=== PATIENT | male | born 1995 | race Caucasian/White ===

== ENCOUNTER 2017-10-29 14:42 | Emergency (ER) | payer OTHER ==
[2017-10-29] MEDS: 0.9 % SODIUM CHLORIDE 1,000 ML IV SCH ×2 (15:44→16:46)
--- NOTE | 2017-10-29 15:46 | ED Physician Documentation ---
Abdominal Pain - HISTORIAN Historian: patient - HPI Stated Complaint: Right abdominal pain Chief Complaint: Abdominal Pain Additonal Information: Yesterday patient developed some ill feeling and he became lightheaded, started to have some nausea/vomiting. Patient was having some orthostatic symptoms at that time. Later that day started to have some vomiting again with some dry heaves. Was able to keep some fluids and food down for a short period of time today. Developed some stabbing sensation to the right lower abd area this afternoon. Still has pain in the right lower abd area. Has some some diarrhea yesterday, none today. No blood in stool or emeisis. Did have a low grade fever and chills yesterday, none today. Onset: days ago (yesterday) Duration: waxing, waning Timing: better Context: denies: out of country travel, bad food Severity: moderate Quality: cramping Associated Symptoms: fever, chills, nausea, vomiting. denies: bloody stools, grossly bloody stools Exacerbated by: nothing Relieved by: nothing - ROS CONST: no problems GI/: none - SOCIAL HX Smoking History: non-smoker Alcohol Use: none - FAMILY HX Family History: none - PAST HX Past History: none Other History: none Surgeries/Procedures: none Immunizations: referred to PCP Home Medications: Ambulatory Orders Medication Instructions Recorded Ondansetron HCl Rapdis [Zofran Odt] 4 mg PO Q8 #5 tab 10/29/17 Allergies/Adverse Reactions: Allergies Allergy/AdvReac Type Severity Reaction Status Date / Time No Known Allergies Allergy Verified 10/29/17 15:02 - VITAL SIGNS Vital Signs: Vital Signs Temp Pulse Resp BP Pulse Ox 98.0 F 67 18 126/74 98 10/29/17 17:25 10/29/17 17:25 10/29/17 17:25 10/29/17 17:25 10/29/17 17:25 - REVIEWED ASSESSMENTS Nursing Assessment Reviewed: Yes Vitals Reviewed: Yes ED Results Lab/Radiology - Lab Results Lab Results: Lab Results 10/29/17 10/29/17 15:35 15:35 WBC 9.30 K/ul K/ul (4.00-12.00) RBC 5.43 M/ul H M/ul (3.90-5.20) Hgb 15.5 g/dL g/dL (12.0-18.0) Hct 45.2 % % (37.0-53.0) MCV 83.2 fl fl (80.0-100.0) MCH 28.5 pg pg (28.0-34.0) MCHC 34.3 g/dL g/dL (30.0-36.0) RDW 12.2 % % (11.3-14.3) Plt Count 315 K/mm3 K/mm3 (130-400) Neut % (Auto) 78.2 % % (39.0-79.0) Lymph % (Auto) 12.0 % L % (16.0-50.0) Scurry % (Auto) 7.8 % % (0.0-11.0) Eos % (Auto) 0.3 % % (0.0-6.8) Baso % (Auto) 0.3 (0.0-1.5) Neut # (Auto) 7.3 # k/uL # k/uL (1.4-7.7) Lymph # (Auto) 1.1 # k/uL # k/uL (0.6-4.0) Scurry # (Auto) 0.7 # k/uL # k/uL (0.0-0.9) Eos # (Auto) 0.0 # k/uL # k/uL (0.0-0.6) Baso # (Auto) 0.0 # k/uL # k/uL (0.0-0.5) Reactive Lymphs % 1.3 % % (0.0-5.0) Reactive Lymphs # 0.1 # k/uL # k/uL (0.0-0.8) Sodium 139 mmol/L mmol/L (136-145) Potassium 3.5 mmol/L mmol/L (3.5-5.1) Chloride 97 mmol/L L mmol/L (98-107) Total Carbon Dioxide 23 mmol/L mmol/L (22-29) BUN 15 mg/dL mg/dL (6-20) Creatinine 1.04 mg/dL mg/dL (0.40-1.50) Estimated GFR mL/min 127 Glucose 108 mg/dL H mg/dL (70-99 Fasting) Calcium 9.8 mg/dL mg/dL (8.6-10.2) Total Bilirubin 0.3 mg/dL mg/dL (<1.2) AST 17 U/L U/L (<40) ALT 10 U/L U/L (<42) Alkaline Phosphatase 84 U/L U/L (40-129) Total Protein 7.5 g/dL g/dL (6.0-8.5) Albumin 4.5 g/dL g/dL (3.5-5.2) Lipase 25 U/L U/L (13-60) - Radiology Radiology Impressions: CT abdomen and pelvis with contrast Date of study: October 29, 2017 CLINICAL HISTORY: RLQ PAIN; APPY PROTOCOL (Hx) / ITS.REASON RLQ ABD PAIN Note time : 10/29/2017 5:38:34 PM User : aMriela Alvarado RLQ PAIN; APPY PROTOCOL (DICOM Hx) TECHNIQUE: 3 mm contiguous axial images of the abdomen and pelvis with IV contrast. With ; 92 CC OMNIPAQUE FINDINGS: Lung ames are hyperinflated The liver spleen adrenal glands pancreas and gallbladder are unremarkable. Kidneys enhance normally. Aorta is unremarkable. Air fluid levels are present in mildly dilated large and small bowel. Appendix is not identified but no inflammatory changes are seen in the right lower quadrant. There is no retroperitoneal or pelvic mass. Small amount of free pelvic fluid is present. The bladder is unremarkable. Act. IMPRESSION: Probable ileus or gastroenteritis. Appendix is not identified. Free pelvic fluid . Hyperinflated lung bases - Orders Orders: ED Orders Category Date Time Status Orthostatics 1T Care 10/29/17 16:[address] IV Lock 1T Care 10/29/17 15:[address] ABD & PELVIS W/ CON Stat Exams 10/29/17 Taken CBC/PLATELET/DIFF Routine Lab 10/29/17 15:35 Completed URINALYSIS Routine Lab 10/29/17 Ordered 0.9 % Sodium Chloride [Normal Saline] 1,000 ml Med 10/29/17 17:00 Discontinued IV .Q1H 0.9 % Sodium Chloride [Normal Saline] 1,000 ml Med 10/29/17 15:39 Discontinued IV .STK-MED 0.9 % Sodium Chloride [Normal Saline] 1,000 ml Med 10/29/17 16:35 Discontinued IV .STK-MED 0.9 % Sodium Chloride [Normal Saline] 1,000 ml Med 10/29/17 15:30 Discontinued IV Q10H Abdominal Pain Physical Exam - Physical Exam General Appearance: alert, mild distress NECK: normal inspection RESPIRATORY: no resp distress, chest non-tender, breath sounds normal. No: wheezes, rales, rhonchi CVS: reg rate & rhythm, heart sounds normal, equal pulses, no murmur, no gallop ABDOMEN: soft, no organomegaly, increased BS (mild), guarding (mild in RLQ) BACK: normal inspection, no CVA tenderness SKIN: warm/dry, normal color EXTREMITIES: non-tender, normal range of motion, no evidence of injury, no edema NEURO: oriented X3, CN's nml as tested, motor nml, cognition normal Vital Signs: Vital Signs Temp Pulse Resp BP Pulse Ox 98.0 F 67 18 126/74 98 10/29/17 17:25 10/29/17 17:25 10/29/17 17:25 10/29/17 17:25 10/29/17 17:25 Discharge Clincal Impression: Viral gastroenteritis Prescriptions: Ondansetron HCl Rapdis [Zofran Odt] 4 mg PO Q8 #5 tab Referrals: Primary Doctor,No [Primary Care Provider] - 2 Days Comments: Clear liquids for then next 12-24 hours, take zofran as needed for nausea. Symptoms should improve within the nex 24 hours. If not getting better to see your primary care provider or return to the ED. Condition: Stable Disposition: 01 HOME, SELF-CARE Decision to Admit: NO Date of Decison to Admit: 10/29/17 Decision Time: 16:55
[2017-10-29 16:07] LABS: BASOPHILS % 0.3 (0.0-1.5); EOSINOPHILS % 0.3 % (0.0-6.8); MEAN CORPUSCULAR HEMOGLOBIN 28.5 pg (28.0-34.0); MEAN CORPUSCULAR VOLUME 83.2 fl (80.0-100.0); MONOCYTES % 7.8 % (0.0-11.0); NEUTROPHILS # 7.3 # k/uL (1.4-7.7)
[2017-10-29 17:28] VITALS: BP 126/74
[2017-10-29] MEDS: 0.9 % SODIUM CHLORIDE 1,000 ML IV ONE ×2 (17:28)
[2017-10-29 18:20] LABS: LIPASE 25 U/L (13-60); TOTAL PROTEIN 7.5 g/dL (6.0-8.5)
--- NOTE | 2017-10-29 20:06 | Diagnostic Imaging Report ---
FANNY HAETH [facility] [id number] [facility] [address] [address] Report Submission Date: October 29, 2017 4:48:58 PM CDT Patient Study Name: RAMEZ PARDO Date: October 29, 2017 4:28:03 PM CDT Modality Type: CT\SR Gender: M Description: CT ABD PELVIS W/ CON : 94 Institution: [facility] Physician: FANNY HEATH CT abdomen and pelvis with contrast Date of study: October 29, 2017 CLINICAL HISTORY: RLQ PAIN; APPY PROTOCOL (Hx) / ITS.REASON RLQ ABD PAIN Note time : 10/29/2017 5:38:34 PM User : Mariela Alvarado RLQ PAIN; APPY PROTOCOL (DICOM Hx) TECHNIQUE: 3 mm contiguous axial images of the abdomen and pelvis with IV contrast. With ; 92 CC OMNIPAQUE FINDINGS: Lung ames are hyperinflated The liver spleen adrenal glands pancreas and gallbladder are unremarkable. Kidneys enhance normally. Aorta is unremarkable. Air fluid levels are present in mildly dilated large and small bowel. Appendix is not identified but no inflammatory changes are seen in the right lower quadrant. There is no retroperitoneal or pelvic mass. Small amount of free pelvic fluid is present. The bladder is unremarkable. Act. IMPRESSION: Probable ileus or gastroenteritis. Appendix is not identified. Free pelvic fluid . Hyperinflated lung bases Electronically signed on October 29, 2017 4:48:58 PM CDT by: Omid WEBER
[2017-10-30 04:00] LABS: APPEARANCE,URINE CLEAR (CLEAR); COLOR,URINE YELLOW (YELLOW); OCCULT BLOOD,URINE NEGATIVE (NEGATIVE)
== END 2017-10-29 17:25 | disposition home or self-care (01) ==
LOC: ED 14:42
DX: A08.4 Viral intestinal infection, unspecified (principal)
CPT/HCPCS: 74177; 80053; 81002; 83690; 85025; J7030; 96360; 96361; 99285; Q9967; S1016